=== PATIENT | male | born 2000 | race American Indian/Alaskan Native ===

== ENCOUNTER 2021-06-28 21:49 | Emergency (ER) | payer SELFPAY ==
[2021-06-28] MEDS ORDERED: HYDROcodone/ACETAMINOPHEN 5-325 MG TAB PO STA (22:22)
--- NOTE | 2021-06-28 23:21 | XRay Report ---
LEFT SHOULDER 3 VIEWS INDICATION / CLINICAL INFORMATION: shoulder pain COMPARISON: None available. FINDINGS: BONES / JOINT(S): No acute fracture or subluxation. No significant arthritis. SOFT TISSUES: No significant abnormality. ADDITIONAL FINDINGS: None. Signer Name: Adolfo Copeland MD Signed: 06/28/2021 11:17 PM Workstation Name: [id number]
--- NOTE | 2021-06-28 23:36 | Emergency Department Report ---
ED Upper Extremity Inj HPI - General Chief Complaint: Extremity Injury, Lower Stated Complaint: LEFT SHOULDER PAIN Time Seen by Provider: 06/28/21 22:21 Source: patient Mode of arrival: Ambulatory Limitations: No Limitations - History of Present Illness Initial Comments: 20-year-old -[place]an male presents emerged department complaining of waking up this morning with left shoulder pain of unknown etiology. He reports no traumatic events but upon awakening had some dull throbbing pain to the shoulder which did not improve with a little more rest presents to the emergency department seeking further relation treatment options no numbness tingling this is located pain is more laterally located. Complaint: Injury to:: left -: Gradual Other Extremity Injury: Elbow: Left Handedness: left Place: home Improves With: none Context: other Associated Symptoms: denies other symptoms - Related Data Previous Rx's Medication Instructions Recorded Last Taken Type Ketorolac [Toradol] 10 mg PO Q6H PRN #15 tablet 06/28/21 Unknown Rx Allergies Allergy/AdvReac Type Severity Reaction Status Date / Time No Known Allergies Allergy Unverified 06/28/21 21:54 ED Review of Systems ROS: Stated complaint: LEFT SHOULDER PAIN Other details as noted in HPI Comment: All other systems reviewed and negative ED Past Medical Hx - Past Medical History Previous Medical History?: No - Surgical History Past Surgical History?: Yes Additional Surgical History: tumor removal - Social History Smoking Status: Never Smoker Substance Use Type: Marijuana - Medications Home Medications: Home Medications Medication Instructions Recorded Confirmed Last Taken Type Ketorolac [Toradol] 10 mg PO Q6H PRN #15 tablet 06/28/21 Unknown Rx ED Physical Exam - General Limitations: No Limitations General appearance: alert, in no apparent distress - Head Head exam: Present: atraumatic, normocephalic - Eye Eye exam: Present: normal appearance - ENT ENT exam: Present: mucous membranes moist - Neck Neck exam: Present: normal inspection - Respiratory Respiratory exam: Present: normal lung sounds bilaterally. Absent: respiratory distress - Cardiovascular Cardiovascular Exam: Present: regular rate, normal rhythm. Absent: systolic murmur, diastolic murmur, rubs, gallop - GI/Abdominal GI/Abdominal exam: Present: soft, normal bowel sounds - Rectal Rectal exam: Present: deferred - Extremities Exam Extremities exam: Present: normal inspection, tenderness (Pain to the left shoulder and the acromioclavicular joint. No sulcus sign is noted. Pain with Bailey's test. Wall test is negative. No deformity swelling to motion pulses 2+ cap refills are brisk) - Back Exam Back exam: Present: normal inspection, CVA tenderness (R), CVA tenderness (L) - Neurological Exam Neurological exam: Present: alert, oriented X3, CN II-XII intact - Psychiatric Psychiatric exam: Present: normal affect, normal mood - Skin Skin exam: Present: warm, dry, intact, normal color. Absent: rash ED Course Vital Signs 06/28/21 06/28/21 21:53 22:39 Temperature 97.9 F Pulse Rate 84 Respiratory 18 18 Rate Blood Pressure 155/74 O2 Sat by Pulse 95 Oximetry ED Medical Decision Making - Radiology Data Radiology results: [place] [address] XRay Report Signed Patient: MIREYA ORELLANA MR#: [id number] : 2000 Acct:[id number] Age/Sex: 20 / M ADM Date: 06/28/21 Loc: ED Attending Dr: Ordering Physician: KARTIK MCALLISTER Date of Service: 06/28/21 Procedure(s): XR shoulder 2+V LT Accession Number(s): [id number] cc: KARTIK MCALLISTER Fluoro Time In Minutes: LEFT SHOULDER 3 VIEWS INDICATION / CLINICAL INFORMATION: shoulder pain COMPARISON: None available. FINDINGS: BONES / JOINT(S): No acute fracture or subluxation. No significant arthritis. SOFT TISSUES: No significant abnormality. ADDITIONAL FINDINGS: None. Signer Name: Adolfo Copeland MD Signed: 06/28/2021 11:17 PM Workstation Name: [id number] Transcribed By: ES Dictated By: Adolfo Copeland MD Electronically Authenticated By: Adolfo Copeland MD Signed Date/Time: 06/28/212316 DD/ 14 TD/TT: Print - Medical Decision Making 20-year-old male is emerged department for left shoulder pain most likely secondary to AC joint strain/contusion. Differential diagnosis does include an AC joint separation, impingement syndrome, arthritis, pneumonia Critical care attestation.: If time is entered above; I have spent that time in minutes in the direct care of this critically ill patient, excluding procedure time. ED Disposition Clinical Impression: Left shoulder pain Disposition: HOME / SELF CARE / HOMELESS Is pt being admited?: No Does the pt Need Aspirin: No Condition: Stable Instructions: How to Use Cold Therapy, [id number], Musculoskeletal Pain Prescriptions: Ketorolac [Toradol] 10 mg PO Q6H PRN #15 tablet PRN Reason: Pain Referrals: [facility] [Provider Group] - 3-5 Days
[2021-06-29 00:12] VITALS: BP 139/79
== END 2021-06-29 00:06 | disposition home or self-care (01) ==
LOC: ED 21:49
DX: M25.512 Pain in left shoulder (principal); F12.10 Cannabis abuse, uncomplicated
CPT/HCPCS: 99283

== ENCOUNTER 2021-08-03 10:10 | Emergency (ER) | payer SELFPAY ==
--- NOTE | 2021-08-03 12:14 | Emergency Department Report ---
ED Abdominal Pain HPI - General Chief Complaint: Abdominal Pain Stated Complaint: abdomianl pain Time Seen by Provider: 08/03/21 12:02 Source: patient Mode of arrival: Ambulatory Limitations: No Limitations - History of Present Illness Initial Comments: 20-year-old -Serbian male presents to the emergency room stating that he had abdominal pain that started 3 days ago but has resolved now. Patient states he felt like he was having food poisoning. As he had some [place] food. He states he was nauseated but never vomited no diarrhea. Patient states that this time he was just curious if everything is gotten better. Patient denies any symptoms at this time. No fever no chills no nausea no vomiting no diarrhea. MD Complaint: abdominal pain Onset/Timin -: days(s) Location: diffuse Radiation: none Migration to: no migration Severity scale (0 -10): 0 Consistency: now resolved Associated Symptoms: denies other symptoms - Related Data Previous Rx's Medication Instructions Recorded Last Taken Type Ketorolac [Toradol] 10 mg PO Q6H PRN #15 tablet 06/28/21 Unknown Rx Allergies Allergy/AdvReac Type Severity Reaction Status Date / Time No Known Allergies Allergy Unverified 06/28/21 21:54 ED Review of Systems ROS: Stated complaint: abdomianl pain Other details as noted in HPI Comment: All other systems reviewed and negative ED Past Medical Hx - Surgical History Additional Surgical History: tumor removal - Social History Smoking Status: Never Smoker Substance Use Type: Marijuana - Medications Home Medications: Home Medications Medication Instructions Recorded Confirmed Last Taken Type Ketorolac [Toradol] 10 mg PO Q6H PRN #15 tablet 06/28/21 Unknown Rx ED Physical Exam - General Limitations: No Limitations General appearance: alert, in no apparent distress - Head Head exam: Present: atraumatic, normocephalic - Eye Eye exam: Present: normal appearance - ENT ENT exam: Present: mucous membranes moist - Neck Neck exam: Present: normal inspection - Respiratory Respiratory exam: Present: normal lung sounds bilaterally. Absent: respiratory distress - Cardiovascular Cardiovascular Exam: Present: regular rate, normal rhythm. Absent: systolic murmur, diastolic murmur, rubs, gallop - GI/Abdominal GI/Abdominal exam: Present: soft, normal bowel sounds. Absent: distended, tenderness, guarding, rebound - Rectal Rectal exam: Present: deferred - Extremities Exam Extremities exam: Present: normal inspection - Back Exam Back exam: Present: normal inspection - Neurological Exam Neurological exam: Present: alert, oriented X3 - Psychiatric Psychiatric exam: Present: normal affect, normal mood - Skin Skin exam: Present: warm, dry, intact, normal color. Absent: rash ED Course Vital Signs 08/03/21 10:44 Temperature 98.9 F Pulse Rate 67 Respiratory 18 Rate Blood Pressure 148/100 [Left] O2 Sat by Pulse 100 Oximetry ED Medical Decision Making - Medical Decision Making 20-year-old -Serbian male presents to the emergency room stating that he had abdominal pain that started 3 days ago but has resolved now. Patient states he felt like he was having food poisoning. As he had some [place] food. He states he was nauseated but never vomited no diarrhea. Patient states that this time he was just curious if everything is gotten better. Patient denies any symptoms at this time. No fever no chills no nausea no vomiting no diarrhea. Patient has a normal examination. History reports that he is improving. Patient would like a return to work excuse. Critical care attestation.: If time is entered above; I have spent that time in minutes in the direct care of this critically ill patient, excluding procedure time. ED Disposition Clinical Impression: Acute abdominal pain, Food poisoning Disposition: 01 HOME / SELF CARE / HOMELESS Is pt being admited?: No Does the pt Need Aspirin: No Condition: Stable Instructions: Food Poisoning, [id number] Additional Instructions: Increase your fluids advance your diet as tolerated. Avoid eating out. Referrals: PRIMARY [facility]ARE [Primary Care Provider] - 3-5 Days [facility] [Provider Group] - 3-5 Days Forms: Work/School Release Form(ED) Time of Disposition: 12:27
[2021-08-03 12:38] VITALS: BP 146/96
== END 2021-08-03 12:37 | disposition home or self-care (01) ==
LOC: ED 10:10
DX: A05.9 Bacterial foodborne intoxication, unspecified (principal); F12.10 Cannabis abuse, uncomplicated
CPT/HCPCS: 99282

== ENCOUNTER 2022-01-17 14:33 | Emergency (ER) | payer SELFPAY ==
--- NOTE | 2022-01-17 16:54 | XRay Report ---
Left shoulder-3 views INDICATION: left shoulder pain. COMPARISON: None available. IMPRESSION: No acute osseous abnormality. Normal alignment. No significant DJD. Soft tissues are u nremarkable. Signer Name: Vu Vasquez MD Signed: 01/17/2022 4:50 PM Workstation Name: [id number]
--- NOTE | 2022-01-17 20:19 | Emergency Department Report ---
ED Extremity Problem HPI - General Chief complaint: Shoulder Injury Stated complaint: LEFT SHOULDER PAIN Source: patient Mode of arrival: Ambulatory Limitations: No Limitations - History of Present Illness Initial comments: Patient is a 21-year-old -Micron[place] male with no past medical history who presents to the ED with complaint of acute onset persistent nontraumatic left shoulder pain for the last 2 days. Patient states that he is unsure as to whether he slept on the shoulder or if he lifted heavy objects at work. Patient states that he is unable to perform any active range of motion with the left shoulder due to pain. Patient denies dizziness, syncope, fall, chest pain or shortness of breath, neck pain, headache, numbness and tingling or weakness of upper extremities bilaterally or back pain, nausea and vomiting. MD Complaint: extremity pain (Left shoulder pain), joint paint (Left shoulder pain) -: days(s) (2) Location: upper extremity (Left shoulder) History of Same: No -: Yes arthralgia (Left shoulder pain), No fever, No associated dyspnea, No associated chest pain Radiation: distal Severity scale (0 -10): 7 Quality: aching, sharp Consistency: constant Improves with: nothing Worsens with: weight bearing, walking, exertion, palpation Associated Symptoms: denies other symptoms, arthralgias (Left shoulder pain). denies: chest pain, shortness of breath, fever, myalgias, rash - Related Data Previous Rx's Medication Instructions Recorded Last Taken Type Ketorolac [Toradol] 10 mg PO Q6H PRN #15 tablet 06/28/21 Unknown Rx Ibuprofen [Motrin] 800 mg PO Q8HR PRN #30 tablet 01/17/22 Unknown Rx tiZANidine [Zanaflex 4mg TAB] 4 mg PO Q8H PRN #15 tab 01/17/22 Unknown Rx Allergies Allergy/AdvReac Type Severity Reaction Status Date / Time No Known Allergies Allergy Unverified 06/28/21 21:54 ED Review of Systems ROS: Stated complaint: LEFT SHOULDER PAIN Other details as noted in HPI Constitutional: denies: chills, fever Eyes: denies: eye pain, eye discharge, vision change ENT: denies: ear pain, throat pain Respiratory: denies: cough, shortness of breath, wheezing Cardiovascular: denies: chest pain, palpitations Endocrine: no symptoms reported Gastrointestinal: denies: abdominal pain, nausea, diarrhea Genitourinary: denies: urgency, dysuria Musculoskeletal: arthralgia (Left shoulder pain). denies: back pain, joint swelling Skin: denies: rash, lesions Neurological: denies: headache, weakness, paresthesias Psychiatric: denies: anxiety, depression Hematological/Lymphatic: denies: easy bleeding, easy bruising ED Past Medical Hx - Past Medical History Previous Medical History?: No - Surgical History Past Surgical History?: No Additional Surgical History: tumor removal - Social History Smoking Status: Never Smoker - Medications Home Medications: Home Medications Medication Instructions Recorded Confirmed Last Taken Type Ketorolac [Toradol] 10 mg PO Q6H PRN #15 tablet 06/28/21 Unknown Rx Ibuprofen [Motrin] 800 mg PO Q8HR PRN #30 tablet 01/17/22 Unknown Rx tiZANidine [Zanaflex 4mg TAB] 4 mg PO Q8H PRN #15 tab 01/17/22 Unknown Rx ED Physical Exam - General Limitations: No Limitations General appearance: alert, in no apparent distress - Head Head exam: Present: atraumatic, normocephalic, normal inspection - Eye Eye exam: Present: normal appearance, PERRL, EOMI Pupils: Present: normal accommodation - ENT ENT exam: Present: normal exam, normal orophraynx, mucous membranes moist, TM's normal bilaterally, normal external ear exam - Neck Neck exam: Present: normal inspection, full ROM. Absent: tenderness, meningismus, lymphadenopathy - Respiratory Respiratory exam: Present: normal lung sounds bilaterally. Absent: respiratory distress, wheezes, rhonchi, stridor, chest wall tenderness, accessory muscle use, decreased breath sounds - Cardiovascular Cardiovascular Exam: Present: regular rate, normal rhythm, normal heart sounds. Absent: systolic murmur, diastolic murmur, rubs, gallop - GI/Abdominal GI/Abdominal exam: Present: soft, normal bowel sounds. Absent: tenderness, guarding, rebound, hyperactive bowel sounds, hypoactive bowel sounds, organomegaly, mass, pulsatile mass - Extremities Exam Extremities exam: Present: normal inspection, tenderness (Palpable left shoulder tenderness with limited range of motion due to pain), normal capillary refill. Absent: full ROM (Limited range of motion due to pain), pedal edema, joint swelling, calf tenderness - Back Exam Back exam: Present: normal inspection, full ROM. Absent: tenderness, CVA tenderness (R), CVA tenderness (L), muscle spasm, vertebral tenderness - Neurological Exam Neurological exam: Present: alert, oriented X3, CN II-XII intact, normal gait, reflexes normal - Psychiatric Psychiatric exam: Present: normal affect, normal mood - Skin Skin exam: Present: warm, dry, intact, normal color. Absent: rash ED Course Vital Signs 01/17/22 16:17 Temperature 97.7 F Pulse Rate 72 Respiratory 18 Rate Blood Pressure 153/94 O2 Sat by Pulse 99 Oximetry ED Medical Decision Making - Radiology Data Radiology results: report reviewed, image reviewed [facility] [address] [place] [address] XRay Report Signed Patient: MANOHAR ORELLANA MR#: [id number] : 2000 Acct:[id number] Age/Sex: 21 / M ADM Date: 01/17/22 Loc: ED Attending Dr: Ordering Physician: ED MD ALEX Date of Service: 01/17/22 Procedure(s): XR shoulder 2+V LT Accession Number(s): [id number] cc: ED MD ALEX Fluoro Time In Minutes: Left shoulder-3 views INDICATION: left shoulder pain. COMPARISON: None available. IMPRESSION: No acute osseous abnormality. Normal alignment. No significant DJD. Soft tissues are unremarkable. Signer Name: Vu Vasquez MD Signed: 01/17/2022 4:50 PM Workstation Name: [id number] Transcribed By: JW Dictated By: Vu Vasquez MD Electronically Authenticated By: Vu Vasquez MD Signed Date/Time: 01/17/221649 DD/ 48 TD/TT: - Medical Decision Making This is a 21-year-old -Micronesian male with no past medical history who presents to the ED with complaint of acute onset persistent nontraumatic left shoulder pain for the last 2 days. Patient states that he is unsure as to whether he slept on the shoulder or if he lifted heavy objects at work. Patient states that he is unable to perform any active range of motion with the left shoulder due to pain. In the ED, patient is alert and oriented x3 and is not in any distress. Patient was treated for pain in the ED. Left shoulder x-ray showed no acute fractures or subluxations. On reevaluation, patient's pain is well controlled medication. Patient will be discharged home on pain medications and advised to follow-up with his primary care physician in 7 to 10 days for reevaluation or return to the ED immediately if symptoms get worse. - Differential Diagnosis Shoulder bursitis; shoulder tendinitis; shoulder muscle strain; Critical care attestation.: If time is entered above; I have spent that time in minutes in the direct care of this critically ill patient, excluding procedure time. ED Disposition Clinical Impression: Bursitis of left shoulder, Left shoulder tendonitis Muscle strain of left shoulder Qualifiers: Encounter type: initial encounter Qualified Code(s): S46.912A - Strain of unspecified muscle, fascia and tendon at shoulder and upper arm level, left arm, initial encounter Disposition: HOME / SELF CARE / HOMELESS Is pt being admited?: No Does the pt Need Aspirin: No Condition: Stable Instructions: Bursitis, [id number], Muscle Strain, [id number], Tendinitis, [id number] Additional Instructions: Left shoulder x-ray showed no acute fractures or subluxations. Your symptoms are likely due to muscle strain, versus tendinitis or bursitis of the left shoulder. Therefore take medications as needed for pain, drink plenty fluids, follow-up with your primary care physician in 7 to 10 days for reevaluation. Return to the ED immediately if symptoms get worse. Prescriptions: Ibuprofen [Motrin] 800 mg PO Q8HR PRN #30 tablet PRN Reason: Pain , Severe (7-10) tiZANidine [Zanaflex 4mg TAB] 4 mg PO Q8H PRN #15 tab PRN Reason: Muscle Spasm Referrals: [facility] [Provider Group] - 7-10 days Forms: Work/School Release Form(ED) Time of Disposition: 20:22 Print Language: ITALIAN
[2022-01-17] MEDS ORDERED: ACETAMINOPHEN 500 MG TAB PO ONE (20:26)
[2022-01-17] MEDS ORDERED: IBUPROFEN 600 MG TAB PO ONE (20:26)
[2022-01-17 21:14] VITALS: BP 137/95
== END 2022-01-17 21:05 | disposition home or self-care (01) ==
LOC: ED 14:33
DX: S46.912A Strain of unspecified muscle, fascia and tendon at shoulder and upper arm level, left arm, initial encounter (principal); M75.52 Bursitis of left shoulder; Z98.890 Other specified postprocedural states; X58.XXXA Exposure to other specified factors, initial encounter; Y93.89 Activity, other specified; Y92.89 Other specified places as the place of occurrence of the external cause; Y99.8 Other external cause status
CPT/HCPCS: 99283